=== PATIENT | female | born 1955 | race African-American/Black ===

== ENCOUNTER 2016-11-29 10:16 | Emergency (ER) | payer MEDICARE, MEDICAID ==
[~2016-11-29] VITALS: Ht 170.2 cm; Wt 73.0 kg
[~2016-11-29 10:16] MED LIST: MELO-106
[2016-11-29 14:50] VITALS: BP 116/65
== END 2016-11-29 15:01 | disposition home or self-care (01) ==
LOC: ER 12:18
DX: J06.9 Acute upper respiratory infection, unspecified (principal); Z88.5 Allergy status to narcotic agent
CPT/HCPCS: 99283

== ENCOUNTER 2019-02-21 21:33 | Emergency (ER) | payer MEDICARE, MEDICAID ==
[~2019-02-21] VITALS: Ht 170.2 cm; Wt 77.0 kg
[2019-02-21 22:08] VITALS: BP 142/85
[2019-02-21] MEDS: PREDNISONE 20MG TABLET PO ONE (22:37)
[2019-02-21] MEDS: DIPHENHYDRAMINE 50MG CAPSULE PO ONE (22:39)
== END 2019-02-21 23:07 | disposition home or self-care (01) ==
LOC: ER 21:33
DX: S80.862A Insect bite (nonvenomous), left lower leg, initial encounter (principal); W57.XXXA Bitten or stung by nonvenomous insect and other nonvenomous arthropods, initial encounter; Y93.89 Activity, other specified; Y92.89 Other specified places as the place of occurrence of the external cause
CPT/HCPCS: 99283; J7512; Q0163